=== PATIENT | female | born 1955 | race Caucasian/White ===

== ENCOUNTER → 2016-05-27 | Outpatient (CLI) | payer BC ==
[~2016-05-27] MED LIST: ACETAMINOPHEN PO; ADVAIR 2501 DISK W/D PO; ADVAIR 5001 DISK W/D PO; ALBUTEROL MININEB NEB; ALBUTEROL17 GM INH; ALPRAZOLAM PO; ALTACE PO; AMBIEN PO; AMITRIPTYLINE H25 MG PO; ASPIRIN PO; ASPIRIN81 MG PO; CIPRO PO; COMBIVENT MININEB INH; COREG6.25 MG PO; COUMADIN5 MG PO; CRESTOR PO; FERROUS GLUCON324 MG PO; FLOMAX0.4 M1 PO; HUMIBID DM1 TAB.SR . PO; HUMIBID-LA600 MG PO; HYDROCHLOROTHIA25 MG PO; HYDROCODON-ACE1 EAC4 PO; HYDROCODON-ACE1 EAC5 PO; LASIX PO; LASIX20 MG PO; LIPITOR40 MG PO; MELOXICAM15 MG PO; METOPROLOL TAR25 MG PO; NITROGLYCERIN4.1 GM TL; NITROGYLCERIN INH; PHENERGAN25 MG PO; PREDNISONE PO; PREDNISONE10 MG/DOSE PO; SERTRALINE HCL50 MG PO; SIMVASTATIN40 MG PO; SIMVASTATIN80 MG PO; SINGULAIR PO; SPIRIVA18 MCG INH; SULAR17 MG PO; SYMBICORT INH; TOPAMAX50 MG PO; TOPROL XL PO; VICODIN 5/500 T1 TAB PO; VITAMIN C500 M1 PO; ZETIA PO; ZOCOR PO; ZOLOFT PO
--- NOTE | ~2016-05-27 | CR63 ---
[facility]. [facility] A Service of [facility] & [facility] RADIOLOGY TEXT RESULTS PATIENT: RENE LEVIN LOCATION: [facility] : 55 UNIT #: [id number] AGE: [address]: Humera Haddad MD SEX: F ORDER DR: [id number] [address] [address] [id number] O MR#: [id number] Acc #: [id number] NAME: RENE LEVIN : 1955 SEX: F STUDY DATE/TIME: 05/27/2016 10:25 UNIT: [facility]AD ROOM: STUDY DESCRIPTION: CR Chest 2 View Attending Physician: Humera Haddad M.D. Referring Physician: Humera Haddad M.D. Ordering Physician: Humera Haddad M.D. Primary Care Physician: Humera Haddad M.D. MEDICAL IMAGING REPORT This report is preliminary unless electronic signature is present. EXAM Chest PA and lateral 05/27/2016 COMPARISON 09/10/2015. HISTORY Spitting up mucus with blood for 3 weeks. FINDINGS PA and lateral views are obtained. Cardiac size in the patient is stable. Vascular pattern is normal and the lungs remain clear. CONCLUSION Stable chest. No active disease. Dictated by... Ole Brizuela M.D. THIS IS AN ELECTRONICALLY VERIFIED REPORT Ole Brizuela M.D. at 05/28/2016 4:45 PM ELSA/laura TD: 05/27/2016 12:02 JOB #: [id number] MEDICAL IMAGING REPORT
== END | disposition home or self-care (01) ==
LOC: SRAD 10:12
DX: J44.1 Chronic obstructive pulmonary disease with (acute) exacerbation (principal)
CPT/HCPCS: 71020